=== PATIENT | female | born 1950 | race Caucasian/White ===

== ENCOUNTER 2022-06-15 17:53 | Emergency (ER) | payer MEDICARE, SELFPAY ==
--- NOTE | ~2022-06-15 | XR_ITS ---
EXAMINATION: XR WRIST, RIGHT CLINICAL INFORMATION: Injury, pain COMPARISON: None TECHNIQUE: 4 views of the right wrist. FINDINGS: The bones and soft tissues are normal. No fracture. Alignment is anatomic with normal joint spaces. No erosions or abnormal soft tissue calcifications. XR/XR wrist RT min 3V IMPRESSION: Normal right wrist.
--- NOTE | ~2022-06-15 | XR_ITS ---
EXAMINATION: XR FOREARM, RIGHT CLINICAL INFORMATION: Fall, pain. COMPARISON: None TECHNIQUE: AP and lateral views of the right forearm were obtained. FINDINGS: There is a nondisplaced fracture distal radius with likely intra-articular extension. There are no additional fracture seen. XR/XR forearm RT 2V IMPRESSION: Nondisplaced fracture distal radius with likely intra-articular extension.
[2022-06-15 19:34] VITALS: BP 148/70; PULSE 77; RESP 17; TEMP 36.6; O2SAT 96; BMI 34.9
[2022-06-15 22:03] VITALS: BP 138/74; PULSE 97; RESP 18; TEMP 36.6; O2SAT 97
[2022-06-15] MEDS: Acetaminophen 325 MG TABLET 975 MG PO (22:17)
--- NOTE | 2022-06-15 22:40 | ED_ITS ---
HPI - Extremity Problem General Chief complaint: Extremity Injury, Upper Stated complaint: R Arm Pain S/P Fall 06/15/22 Time Seen by Provider: 06/15/22 21:52 Source: patient Mode of arrival: ambulatory Limitations: no limitations History of Present Illness HPI Narrative: This is a 72-year-old female who is right-hand dominant who presents with right wrist pain after a fall on outstretched hand earlier today after slipping on a wet floor. She denies any hitting of the head or loss of consciousness. She complains of right wrist pain and swelling. No associated numbness, tingling, redness, warmth or fever. Related Data Previous Rx's Medication Instructions Recorded oxycodone 5 mg tablet 5 mg PO Q8H PRN pain #10 tabs 06/15/22 Allergies Allergy/AdvReac Type Severity Reaction Status Date / Time egg [EGGS] Allergy Unknown UNKNOWN Verified 06/15/22 19:33 Penicillins [PENICILLINS] Allergy Unknown UNKNOWN Verified 06/15/22 19:33 Review of Systems Review of Systems: Yes all other systems are reviewed and are negative Constitutional: Constitutional: Reports no additional constitutional complaints, Denies body ache(s), Denies chills, Denies fever(s), Denies headache(s) and Denies weakness Eyes: Eyes: Reports no additional eye complaints and Denies change in vision ENT: Reports system reviewed and no additional complaints, except as documented, Denies dizziness, Denies headache(s), Denies nasal congestion, Denies nasal discharge and Denies neck pain Cardiovascular: Cardiovascular: Reports no additional cardiovascular complaints, Denies chest pain, Denies leg edema and Denies dyspnea Respiratory: Respiratory: Reports no additional respiratory complaints, Denies cough and Denies dyspnea Gastrointestinal: Gastrointestinal: Reports no additional gastrointestinal complaints, Denies abdominal pain, Denies diarrhea, Denies nausea and Denies vomiting Genitourinary: Genitourinary: Reports no additional female genitourinary complaints and Denies urinary incontinence Musculoskeletal: Musculoskeletal: Reports no additional musculoskeletal complaints, Denies back pain, Reports arthralgias, Reports joint swelling, Reports limited range of motion, Denies neck pain, Denies numbness and Denies tingling Integumentary/Breasts: Skin/Breast: Reports system reviewed and no additional complaints, except as docu and Denies rash Neurologic: Denies Abnormal speech present, Denies dizziness, Denies headache(s), Denies numbness, Denies tingling and Denies weakness PMF Past Medical History Attestation statement: The following information was validated with the patient. Source: old records reviewed and nursing notes reviewed Social History Social History Advance Directives: No Advance Directives Information Provided: No Physical Exam Vital Signs: Vital Signs: Last Vital Signs Temp 97.8 F 06/15/22 22:03 Pulse 97 06/15/22 22:03 Resp 18 06/15/22 22:03 BP 138/74 06/15/22 22:03 Pulse Ox 97 06/15/22 22:03 O2 Del Method 06/15/22 22:03 BMI result Body Mass Index 34.9 Const: General: cooperative, healthy appearing, comfortable and no acute distress Orientation/consciousness: patient oriented x3 Limitations: no limitations HEENT: Head: Yes normal to inspection Ears: hearing grossly normal bilaterally General nose exam: Normal external nose present Face and sinus: Yes normal facial exam Mouth: Normal oral and palatal mucosa present Throat: Yes posterior oropharynx normal Eyes: General: appearance normal, both eyes and all related structures Pupils: Equal, round and reactive pupils present Neck: Neck: Yes normal visual inspection Chest: Chest palpation & inspection: normal inspection of the chest Resp: Effort & Inspection: normal respiratory effort Auscultation: clear to auscultation bilaterally Cardio: Rate: regular rate Rhythm: regular rhythm Peripheral pulses: Peripheral pulses 2+ throughout GI: Inspection: Yes normal to inspection Palpation (GI): Soft to palpation and nontender Auscultation: normal bowel sounds Back/Spine/Pelvis: Thoracic/Lumbar Spine: thoracic and lumbar spine normal to inspection Skin: General skin exam: no rashes or lesions noted Neuro: General: patient oriented x3, no focal motor deficits and normal sensation to monofilament Cranial nerves: Yes Equal, round and reactive pupils present Cognition (Neuro): normal cognition Speech: No Abnormal speech present Gait exam (Neuro): Normal gait present Motor exam (neuro): 5/5 motor strength present throughout Extrem: Other: Patient has significant tenderness over the distal radius with swelling and limited range of motion due to pain. She has palpable radial and ulnar pulses. Her sensation is intact distally. Normal cap refill. General: Yes normal to inspection Course Course Course Narrative: initial x-ray ordered from triage right wrist shows no acute finding. However patient has significant tenderness over the distal right radius with limited range of motion due to pain and swelling. Therefore patient will have additional x-rays of the forearm to eval for underlying fracture. x-ray shows Nondisplaced fracture distal radius with likely intra-articular extension. Discussed case with Sarita CANTU from Orthopedics. Recommend splint placement and follow-up with Orthopedics in the office. MDM - Extremity (Nontraumatic) MDM Narrative Medical decision making narrative: 72-year-old female who is [id number] here after mechanical fall with FOOSH with right wrist pain, swelling and limited range of motion. Will check x-rays, provide analgesia. Medical Records Attestation: I reviewed the patient's medical records. Lab Data Attestation: I reviewed the patient's lab results. Imaging Data Forearm x-ray: Attestation: I personally reviewed and interpreted this imaging study as follows: Radiologist's impression: MPARISON: None? TECHNIQUE: AP and lateral views of the right forearm were obtained. FINDINGS: There is a nondisplaced fracture distal radius with likely intra-articular extension. There are no additional fracture seen.? XR/XR forearm RT 2V IMPRESSION: Nondisplaced fracture distal radius with likely intra-articular extension. Procedures Orthopedic Splinting/Casting Injury #1: Side: right Upper Extremity Injury Location: wrist Upper Extremity Immobilizer: volar splint Discharge Plan Discharge Clinical Impression: Distal radius fracture, right Patient Disposition: Home, Self-Care Instructions: Wrist Fracture in Adults (ED) Additional Instructions: leave the splint on at all times. do not get it wet elevate the arm, use the sling for comfort call Orthopedics tomorrow for follow-up appointment Prescriptions: New oxycodone 5 mg tablet 5 mg PO Q8H PRN (Reason: pain) Qty: 10 0RF Rx Instructions: Partial Fill upon patient request. Referrals: [facility] [place] [Provider Group] - 1 week Interventions: ED Discharge Assessment Last Done: 06/15/22 22:58 Discharge Date/Time: 06/15/22 22:59
[2022-06-15] MEDS: oxyCODONE HCl Immed Release 5 MG TABLET PO (22:43)
--- NOTE | 2022-06-15 22:54 | PC.NURSE ---
Pt a&o,no sob or chest pain. pt put in a splint and sling. positive cms and pulses. Reviewed discharge instruction with pt. pt verbalized understanding. Medicated per Dec. pt had a steady gait at discharge.
== END 2022-06-15 22:59 | disposition home or self-care (01) ==
PROVIDERS: Emergency Provider Internal Medicine; PCP Internal Medicine
DX: S62.101A Fracture of unspecified carpal bone, right wrist, initial encounter for closed fracture (principal); W01.0XXA Fall on same level from slipping, tripping and stumbling without subsequent striking against object, initial encounter; Y93.9 Activity, unspecified; Y92.9 Unspecified place or not applicable; Y99.9 Unspecified external cause status; Z79.899 Other long term (current) drug therapy
CPT/HCPCS: 29125; 73090; 73110; 99284

== ENCOUNTER 2022-06-21 11:28 | Outpatient (REF) | payer MEDICARE, SELFPAY ==
--- NOTE | ~2022-06-21 | XR_ITS ---
EXAMINATION: XR WRIST, RIGHT CLINICAL INFORMATION: Pain COMPARISON: Previous x-ray 06/15/2022 TECHNIQUE: PA, lateral, and oblique views of the right wrist. FINDINGS: There is a nondisplaced fracture of the distal radius. This appears unchanged from previous exam 06/15/2022. No other fracture is seen. Joint spaces are normal. There is soft tissue swelling over the distal wrist. XR/XR wrist RT min 3V IMPRESSION: No change in right distal radius fracture from recent exam.
== END 2022-06-21 11:29 | disposition home or self-care (01) ==
LOC: HO.HOSX 11:28
PROVIDERS: Visit Provider Physician Assistant
DX: S52.501A Unspecified fracture of the lower end of right radius, initial encounter for closed fracture (principal)
CPT/HCPCS: 29085; 73110; 99202

== ENCOUNTER → 2022-06-24 15:01 | Outpatient (BNVA) | payer MEDICARE, SELFPAY | PROVIDERS: PCP Internal Medicine; Visit Provider Physician Assistant | DX: S52.501D Unspecified fracture of the lower end of right radius, subsequent encounter for closed fracture with routine healing (principal) | CPT/HCPCS: 29085; 99212 ==

== ENCOUNTER 2022-06-30 08:10 | Outpatient (REF) | payer MEDICARE, SELFPAY ==
--- NOTE | ~2022-06-30 | XR_ITS ---
EXAMINATION: XR HAND, RIGHT CLINICAL INFORMATION: Pain right hand COMPARISON: X-rays of the right wrist and forearm 06/21/2022 TECHNIQUE: PA, lateral, and oblique views of the right hand. FINDINGS: Exam slightly limited in that the lateral view includes only a portion of the hand Mildly displaced minimally comminuted distal radius fracture unchanged. Possible extension to the articular surface of the radiocarpal joint. Bones joints and soft tissues unremarkable. XR/XR hand RT min 3V IMPRESSION: Fracture distal radius unchanged. No additional abnormality in the hand.
== END 2022-06-30 08:11 | disposition home or self-care (01) ==
LOC: HO.HOSX 08:10
PROVIDERS: Visit Provider Orthopaedic Surgery
DX: S52.501D Unspecified fracture of the lower end of right radius, subsequent encounter for closed fracture with routine healing (principal)
CPT/HCPCS: 73130; 99212

== ENCOUNTER 2022-07-14 10:55 | Outpatient (REF) | payer MEDICARE, SELFPAY ==
--- NOTE | ~2022-07-14 | XR_ITS ---
EXAMINATION: XR WRIST, RIGHT CLINICAL INFORMATION: Right wrist pain. COMPARISON: Right hand x-rays of 06/30/2022, right wrist x-ray of 06/21/2022 and 06/15/2022. TECHNIQUE: PA, lateral, and oblique views of the right wrist. FINDINGS: Healing transverse fracture of the right distal radial metaphysis is noted with internal callus formation/sclerosis at the site of the fracture. Fracture lucency is still visible. Small vertically oriented slightly distracted fracture on the dorsal aspect of the distal radial metaphysis is redemonstrated without significant interval change compared to last study. Radiocarpal and distal radioulnar joint alignments are maintained. No evidence of soft tissue air or radiopaque foreign body. The remainder of the visualized osseous structures are intact. XR/XR wrist RT min 3V IMPRESSION: Healing fractures of the right distal radial metaphysis without intra-articular extension. Fracture lucencies are still visualized.
== END 2022-07-14 10:56 | disposition home or self-care (01) ==
LOC: HO.HOSX 10:55
PROVIDERS: Visit Provider Orthopaedic Surgery
DX: M25.531 Pain in right wrist (principal)
CPT/HCPCS: 73110

== ENCOUNTER → 2022-08-25 13:27 | Outpatient (BNVA) | payer MEDICARE, SELFPAY | PROVIDERS: PCP Internal Medicine; Visit Provider Orthopaedic Surgery | DX: S52.501D Unspecified fracture of the lower end of right radius, subsequent encounter for closed fracture with routine healing (principal); G56.01 Carpal tunnel syndrome, right upper limb; M65.311 Trigger thumb, right thumb | CPT/HCPCS: 99212 ==

== ENCOUNTER 2022-10-07 06:58 | Day surgery (SDC) | payer MEDICARE, SELFPAY ==
[2022-10-07 06:39] VITALS: BMI 34.9
[2022-10-07 07:05] VITALS: BP 152/78; PULSE 78; RESP 18; TEMP 36.1; O2SAT 98
--- NOTE | 2022-10-07 08:06 | MHC.SHP ---
Pre-Procedural Eval Section A Date of Service: 10/07/22 The patient is an INPATIENT: No Changes since office visit: No Cold of Flu in the past 2 weeks, No New Medical Problems, No Changes in Medication and No Patient answered all questions The History & Physical has been completed within 30 days and I have reviewed it.: Yes Section B Chief Complaint: Trigger thumb, right thumb,Carpal tunnel syndrome, Allergies: Allergies Allergy/AdvReac Type Severity Reaction Status Date / Time egg [EGGS] Allergy Unknown UNKNOWN Verified 08/25/22 13:52 Penicillins [PENICILLINS] Allergy Unknown UNKNOWN Verified 08/25/22 13:52 Plan I have reviewed the history and physical and performed a pertinent physical examination on my patient. No changes have occurred unless specified. Time Spent With Patient Time: Total time managing care of this patient today ____ minutes.
--- NOTE | 2022-10-07 08:06 | W.PM.OPN ---
Operative Note Operative Note Date of Service: 10/07/22 Narrative: Preop diagnosis: 1. right Carpal tunnel syndrome 2. Right trigger thumb Postop diagnosis: same Procedure: 1. right Carpal tunnel release 2. Right trigger thumb release Surgeon: Radha Orozco MD Anesthesia: local block using 1% lidocaine with epinephrine Findings: Thickened transverse carpal ligament. no locking or catching after A1 hilda release. EBL: Less than 5 mL Specimens: None Complications: None Disposition: Brought to recovery room in stable condition Plan: Follow-up for 10-14 days for wound check and suture removal Indications: The patient is [age] years old, with a right trigger thumb and right carpal tunnel syndrome that has been unresponsive to nonoperative management. The risks and benefits of operative treatment including but not limited to risk of damage to blood vessels, nerves, tendons, infection, persistent pain, persistent symptoms, or possible need for additional surgery were discussed with the patient and the patient wishes to proceed with surgery. Procedure: Once consent was obtained a local block was performed using a combination of 1% lidocaine with epinephrine. The patient was then brought back to the operating suite and placed on the operative table in supine position. A tourniquet was applied to the proximal aspect of the right upper extremity and the limb was prepped and draped in a standard surgical fashion. Once assured that we had a good block, a 2.0 cm longitudinal incision was made centered over the carpal tunnel. The incision was made through the skin to the subcutaneous tissues using a #15 blade. Dissection was made down to the level of the transverse carpal ligament with care being taken to protect the palmar cutaneous nerve. Once the transverse carpal ligament was clearly visualized, a longitudinal incision was made in the transverse carpal ligament 1st using a #15 blade, then using tenotomy scissors under direct visualization. Care was taken to look for and protect the motor branch of the median nerve when seen in this area. Once assured that we had a good block, a 1.5 cm oblique incision was made centered over the A1 hilda of the right thumb . The incision was made through the skin to the subcutaneous tissues using a #15 blade. Careful dissection was made down to the level of the A1 hilda using tenotomy scissors, with care being taken to protect the nearby neurovascular structures. A longitudinal incision was made in the A1 hilda 1st using a #15 blade, then using tenotomy scissors under direct visualization. The A1 hilda was noted to be thickened. Following our A1 hilda release, we no longer saw any locking or catching of the digit with flexion and extension. Once satisfied with our carpal tunnel and trigger thumb release the wound was copiously irrigated with normal saline and hemostasis was obtained with a brief period of local pressure. The skin edges were reapproximated with some 5.0 nylon suture material and a sterile dressing was applied. The patient appears to have tolerated the procedure well and with no complications. All digits were well vascularized at the conclusion of the case.
[2022-10-07 09:18] VITALS: BP 125/68; PULSE 79; RESP 16; TEMP 37.3; O2SAT 96
== END 2022-10-07 09:32 | disposition home or self-care (01) ==
PROVIDERS: PCP Internal Medicine; Visit Provider Orthopaedic Surgery
PROC: (CPT 64721; principal; 2022-10-07 08:20)
PROC: (CPT 26055; 2022-10-07 08:20)
DX: G56.01 Carpal tunnel syndrome, right upper limb (principal); M65.311 Trigger thumb, right thumb; R20.0 Anesthesia of skin; R20.2 Paresthesia of skin; I51.7 Cardiomegaly; Z88.0 Allergy status to penicillin
CPT/HCPCS: 64721; 26055; J0171

== ENCOUNTER → 2022-10-20 11:25 | Outpatient (BNVA) | payer MEDICARE, SELFPAY | PROVIDERS: PCP Internal Medicine; Visit Provider Orthopaedic Surgery | DX: Z13.89 Encounter for screening for other disorder (principal) ==